=== PATIENT | male | born 1935 | race Caucasian/White ===

== ENCOUNTER 2018-02-01 06:06 | Inpatient (IN) ==
[2018-02-01] MEDS ORDERED: HYDROcodone/APAP 5/325MG TABLET PO ONE (07:03)
--- NOTE | 2018-02-01 07:06 | Emergency Department Note ---
General Adult HPI - General Chief complaint: Rib Pain Stated complaint: Short of Breath Time Seen by Provider: 02/01/18 06:58 Mode of arrival: EMS - History of Present Illness HPI Narrative: This patient broke ribs on the right side ribs 5 through 8 about 2 months ago. He continues to have a lot of pain in the ribs with cough. Does not feel very short of breath. He is coughing up some clear phlegm which sounds chronic. - Related Data Home Medications Medication Instructions Recorded Confirmed rivaroxaban 20 mg tablet 20 mg PO QDAY 10/30/15 02/01/18 Previous Rx's Medication Instructions Recorded ipratropium-albuterol 0.5 mg-3 3 ml INHALATION Q6H PRN #30 vial 03/05/16 mg(2.5 mg base)/3 mL nebulization soln nebulizer See Label Instructions PO .qid prn 03/05/16 #1 omeprazole 20 mg capsule,delayed 20 mg PO QDAY 90 Days #90 cap 12/17/16 release arm sling #1 each 04/09/17 levothyroxine 100 mcg tablet 100 mcg PO QDAY 90 Days #90 tab 04/09/17 lisinopril 10 mg tablet 10 mg PO QDAY #30 tab 04/09/17 fluoxetine 10 mg capsule 10 mg PO QDAY #30 cap 11/17/17 HYDROcodone/APAP 5/325MG [[place] 1 tab PO Q4HP PRN #20 tab 02/01/18 5-325Mg] Allergies Allergy/AdvReac Type Severity Reaction Status Date / Time No Known Drug Allergies Allergy Unknown NONE Verified 01/26/18 10:27 [NKDA] Review of Systems All systems ED: reviewed and negative except as stated. Past Medical History - Past Medical History PMF Narrative: Medical History Tobacco abuse (Chronic) Myocardial infarction, old (Chronic) Hypothyroidism (acquired) (Chronic) Hypertension, essential (Chronic) Hyperlipidemia (Chronic) Hyperbilirubinemia (Chronic) Gross hematuria (Chronic 03/29/12) Gastritis and gastroduodenitis (Chronic) Elevated prostate specific antigen (PSA) (Chronic) Elevated liver enzymes (Chronic) Depression (Chronic) Coronary artery disease (Chronic) Benign prostatic hypertrophy with lower urinary tract symptoms (LUTS) (Chronic) Atrial flutter (Chronic) Atrial fibrillation (Chronic) Anxiety disorder (Chronic) Anemia, iron deficiency (Chronic) Past Surgical History Hx of hernia repair (Chronic) Hx of colonoscopy (Chronic) Cataract (Chronic) Family History Mother Malignant neoplasm of breast Other Malignant neoplasm Medical history: Reports: atrial fibrillation - Social History smoking status: Current every day smoker Alcohol use: Reports: Frequently, Daily, Heavy Drug use: Reports: none Physical Exam Limitations: no limitations General appearance: lethargic Head: atraumatic Eye: Present: normal appearance ENT: normal exam Neck: Present: normal inspection Chest: Present: normal inspection Respiratory: Present: other (Scattered rhonchi in the left side) Cardiovascular: Present: regular rate, normal rhythm, normal heart sounds Abdominal: Present: soft. Absent: distention, tenderness Neurological: Present: alert Psychiatric: Present: normal affect, normal mood Skin: Present: warm, dry, intact Course Vital Signs Temperature 97.4 F 02/01/18 06:07 Pulse Rate 61 02/01/18 06:07 Respiratory Rate 24 H 02/01/18 06:07 Blood Pressure 133/82 02/01/18 06:07 Pulse Oximetry (%) 95 02/01/18 06:07 Temperature 97.4 F 02/01/18 06:07 Pulse Rate 43 L 02/01/18 07:16 Respiratory Rate 24 H 02/01/18 06:07 Blood Pressure 129/82 02/01/18 07:16 Pulse Oximetry (%) 99 02/01/18 07:16 Medical Decision Making - [facility] Narrative Medical decision making narrative: Chest x-ray is unchanged lab work is unremarkable. We will treat him with hydrocodone for his continuing rib pain. - Lab Data Lab results reviewed: Yes I reviewed the patient's lab results. Result diagrams: 02/01/18 06:29 02/01/18 06:29 Lab Results 02/01/18 02/01/18 Range/Units 06:29 06:29 WBC 7.5 (4.5-11.0) K/mcL RBC 3.46 L (4.50-5.90) M/mcL Hgb 12.7 L (13.5-16.5) g/dL Hct 36.9 L (41.0-55.0) % MCV 106.7 H (80.0-100.0) fL MCH 36.6 H (26.0-34.0) pg MCHC 34.3 (31.0-36.0) g/dL RDW 15.7 H (11.5-14.5) % Plt Count 239 (140-440) K/mcL MPV 8.5 (7.4-10.4) fL Gran % 67.3 (38.0-78.0) % Lymph % (Auto) 21.4 (15.5-49.0) % [place] % (Auto) 6.3 (1.0-12.0) % Eos % (Auto) 4.4 (0.0-7.0) % Baso % (Auto) 0.6 (0.0-2.0) % Gran # 5.0 (1.8-8.0) K/mcL Lymph # (Auto) 1.6 (1.5-4.8) K/mcL [place] # (Auto) 0.5 (0.1-0.9) K/mcL Eos # (Auto) 0.3 (0.0-0.7) K/mcL Baso # (Auto) 0 (0.0-0.3) K/mcL Sodium 137 (133-145) mmol/L Potassium 4.0 (3.3-5.1) mmol/L Chloride 102 (96-108) mmol/L Carbon Dioxide 26 (22-30) mmol/L Anion Gap 9.0 (8-16) BUN 13 (8-23) mg/dl Creatinine 0.9 (0.7-1.2) mg/dl GFR Calculation 78 Glucose 87 (70-105) mg/dL Calcium 8.1 L (8.6-10.4) mg/dl Total Bilirubin 1.6 H (0.0-1.0) mg/dL AST 28 (0-37) U/l ALT 13 (0-40) U/l Alkaline Phosphatase 139 H (39-117) U/L Total Protein 6.0 (5.9-8.4) gm/dL Albumin 2.9 L (3.2-5.2) gm/dL Globulin 3.1 (2.2-3.7) gm/dL Albumin/Globulin Ratio 0.9 L (1.0-2.3) - Radiology Data Radiology results reviewed: Yes I reviewed the patient's radiology results. Disposition Pt seen by BUSINESS IMPROVEMENT MANAGER/PA only: No Clinical Impression: Multiple rib fractures Disposition: Home, Self-Care Condition: Good Instructions: Rib Fracture (ED) Prescriptions: HYDROcodone/APAP 5/325MG [[place] 5-325Mg] 1 tab PO Q4HP PRN #20 tab PRN Reason: Pain Referrals: Geoffrey Arambula PA-C [Primary Care Provider] - Time of Disposition: 07:42
[2018-02-01 07:08] LABS: Basophils # (Auto) 0 K/mcL (0.0-0.3); Basophils % (Auto) 0.6 % (0.0-2.0); Eosinophils # (Auto) 0.3 K/mcL (0.0-0.7); Eosinophils % (Auto) 4.4 % (0.0-7.0); Granulocytes % (Auto) 67.3 % (38.0-78.0); Lymphocytes # (Auto) 1.6 K/mcL (1.5-4.8); Lymphocytes % (Auto) 21.4 % (15.5-49.0); Mean Cell Volume 106.7 fL (80.0-100.0); Mean Corpuscular HGB Conc 34.3 g/dL (31.0-36.0); Mean Corpuscular Hemoglobin 36.6 pg (26.0-34.0); Monocytes # (Auto) 0.5 K/mcL (0.1-0.9); Monocytes % (Auto) 6.3 % (1.0-12.0); Platelet Count 239 K/mcL (140-440); RBC 3.46 M/mcL (4.50-5.90); Red Cell Distribution Width 15.7 % (11.5-14.5)
[2018-02-01 07:35] LABS: ALT/SGPT 13 U/l (0-40); Albumin 2.9 gm/dL (3.2-5.2); Albumin/Globulin Ratio 0.9 (1.0-2.3); Alkaline Phosphatase 139 U/L (39-117); Blood Urea Nitrogen 13 mg/dl (8-23)
--- NOTE | 2018-02-01 09:31 | XRay Report ---
CLINICAL INFORMATION: Shortness of breath COMPARISON: 01/26/2018 FINDINGS: Moderate cardiomegaly is unchanged. Mediastinum is unremarkable. Pulmonary vasculature is within normal limits. Marked chronic elevation left diaphragm resulting in subsegmental atelectasis in the overlying left lower lobe and lingula is unchanged. Suspect tiny bilateral pleural effusions IMPRESSION: Marked chronic elevation left diaphragm with minor atelectasis in the lingula and left lower lobe Minor right lower and middle lobe lobe atelectasis. Tiny bilateral pleural effusions Interpreted and Authenticated by: Luis Alfredo Baron 02/01/18
[2018-02-01 10:33] LABS: Appearance,Urine CLEAR; Bilirubin,Urine NEG (NEG); Color,Urine AMBER; Glucose,Urine (UA) NEGATIVE (NEG); Leukocyte Esterase,Urine NEG /uL (NEG); Protein,Urine NEG (NEG); Specific Gravity,Urine 1.028 (1.000-1.035); Urine Blood NEG mg/dL (<0.03)
--- NOTE | 2018-02-01 10:55 | Emergency Department Note ---
Weakness HPI - General Chief complaint: Rib Pain Stated complaint: Short of Breath Time Seen by Provider: 02/01/18 06:58 Mode of arrival: EMS Limitations: no limitations - History of Present Illness HPI Narrative: Patient seen by Dr. pineda before change of shift. On my review with patient there were additional pieces of information that family brought forward that included his weakness and dehydration and falling and that he is now ready for assistance. He lives at home with his . His is in a wheelchair. He has had multiple falls himself that have been the cause of his rib fractures from 3 months ago and then again recently about 8 days ago. His urine was reportedly also very dark. He has been confused for a couple of months. He has been short of breath for a couple of months. He has a history of COPD and CHF hypertension, [place] and hypothyroidism. He has not been taking his thyroid medication. Previously he has not been on to have a low heart rate. On my review his heart rate is 46 sometimes dipping even slightly below 40. He is not real symptomatic except general malaise and fatigue appearance. Family confirms that patient has some depression and does not really want to be alive. He has been poorly motivated. For this reason he has not been taking his thyroid medication. He is a DNR. MD Complaint: generalized weakness, lack of energy, difficulty walking Associated symptoms: Reports: shortness of breath. Denies: chest pain - Related Data Home Medications Medication Instructions Recorded Confirmed rivaroxaban 20 mg tablet 20 mg PO QDAY 10/30/15 02/01/18 Previous Rx's Medication Instructions Recorded ipratropium-albuterol 0.5 mg-3 3 ml INHALATION Q6H PRN #30 vial 03/05/16 mg(2.5 mg base)/3 mL nebulization soln nebulizer See Label Instructions PO .qid prn 03/05/16 #1 omeprazole 20 mg capsule,delayed 20 mg PO QDAY 90 Days #90 cap 12/17/16 release arm sling #1 each 04/09/17 levothyroxine 100 mcg tablet 100 mcg PO QDAY 90 Days #90 tab 04/09/17 lisinopril 10 mg tablet 10 mg PO QDAY #30 tab 04/09/17 fluoxetine 10 mg capsule 10 mg PO QDAY #30 cap 11/17/17 HYDROcodone/APAP 5/325MG [[place] 1 tab PO Q4HP PRN #20 tab 02/01/18 5-325Mg] Allergies Allergy/AdvReac Type Severity Reaction Status Date / Time No Known Drug Allergies Allergy Unknown NONE Verified 01/26/18 10:27 [NKDA] Past Medical History - Past Medical History Medical history: Reports: atrial fibrillation, CHF, COPD, hypertension, hypothyroidism, myocardial infarction. Denies: cancer, CVA, DM Psychiatric history: Reports: depression (Recent with lots of friends as well as circumstances.). Denies: anxiety - Social History smoking status: Current every day smoker Packs per day: 0.5 Alcohol use: Reports: Frequently, Daily (He reports maybe 1 whiskey drink per day), Heavy Drug use: Reports: none. Denies: marijuana Physical Exam Limitations: no limitations General appearance: lethargic Head: atraumatic, normocephalic Eye: Present: EOMI Respiratory: Absent: respiratory distress Cardiovascular: Present: regular rate, bradycardia Course Vital Signs Temperature 97.4 F 02/01/18 06:07 Pulse Rate 61 02/01/18 06:07 Respiratory Rate 24 H 02/01/18 06:07 Blood Pressure 133/82 02/01/18 06:07 Pulse Oximetry (%) 95 02/01/18 06:07 Temperature 97.4 F 02/01/18 06:07 Pulse Rate 48 L 02/01/18 12:01 Respiratory Rate 17 02/01/18 12:01 Blood Pressure 160/94 02/01/18 12:01 Pulse Oximetry (%) 99 02/01/18 12:01 Weakness - MDM Narrative Medical decision making narrative: With the additional findings patient qualifies for inpatient treatment and we will seek a hospital bed with monitoring. I added a TSH to see if his thyroid is way low and could be the main contributor to his bradycardia. A pacemaker would not be indicated if this were so. He is stable enough to monitor this. He is DNR. His urine did not seem to show blood in it. His bili was mildly elevated and this may be a cause for the darker color of his urine. TSH currently pending. He also demonstrated an anemia with macrocytosis. His calcium was also mildly low. He was running 100% on 2 L so I stopped his oxygen and he seemed to be maintaining well. EKG demonstrated a prolonged QTC of greater than 500. 12:40 PM - TSH took a while to come back had to be run twice. It was 58.68. I discussed case with Dr. Rodriguez who kindly accepted care of this patient via telemetry. - Lab Data Result diagrams: 02/01/18 06:29 02/01/18 06:29 Lab Results 02/01/18 02/01/18 02/01/18 Range/Units 06:29 06:29 06:29 WBC 7.5 (4.5-11.0) K/mcL RBC 3.46 L (4.50-5.90) M/mcL Hgb 12.7 L (13.5-16.5) g/dL Hct 36.9 L (41.0-55.0) % MCV 106.7 H (80.0-100.0) fL MCH 36.6 H (26.0-34.0) pg MCHC 34.3 (31.0-36.0) g/dL RDW 15.7 H (11.5-14.5) % Plt Count 239 (140-440) K/mcL MPV 8.5 (7.4-10.4) fL Gran % 67.3 (38.0-78.0) % Lymph % (Auto) 21.4 (15.5-49.0) % [place] % (Auto) 6.3 (1.0-12.0) % Eos % (Auto) 4.4 (0.0-7.0) % Baso % (Auto) 0.6 (0.0-2.0) % Gran # 5.0 (1.8-8.0) K/mcL Lymph # (Auto) 1.6 (1.5-4.8) K/mcL [place] # (Auto) 0.5 (0.1-0.9) K/mcL Eos # (Auto) 0.3 (0.0-0.7) K/mcL Baso # (Auto) 0 (0.0-0.3) K/mcL Sodium 137 (133-145) mmol/L Potassium 4.0 (3.3-5.1) mmol/L Chloride 102 (96-108) mmol/L Carbon Dioxide 26 (22-30) mmol/L Anion Gap 9.0 (8-16) BUN 13 (8-23) mg/dl Creatinine 0.9 (0.7-1.2) mg/dl GFR Calculation 78 Glucose 87 (70-105) mg/dL Calcium 8.1 L (8.6-10.4) mg/dl Total Bilirubin 1.6 H (0.0-1.0) mg/dL AST 28 (0-37) U/l ALT 13 (0-40) U/l Alkaline Phosphatase 139 H (39-117) U/L Total Protein 6.0 (5.9-8.4) gm/dL Albumin 2.9 L (3.2-5.2) gm/dL Globulin 3.1 (2.2-3.7) gm/dL Albumin/Globulin Ratio 0.9 L (1.0-2.3) TSH 58.68 H (0.27-5.01) uIU/ml Urine Color Urine Appearance Urine pH (5.0-9.0) Ur Specific [place] (1.000-1.035) Urine Protein (NEG) mg/dL Urine Glucose (UA) (NEG) mg/dL Urine Ketones (NEG) mg/dL Urine Occult Blood (<0.03) mg/dL Urine Nitrate (NEG) Urine Bilirubin (NEG) mg/dL Urine Urobilinogen (NEG) mg/dL Ur Leukocyte Esterase (NEG) /uL Ur Culture Indicated? 02/01/18 Range/Units 10:16 WBC (4.5-11.0) K/mcL RBC (4.50-5.90) M/mcL Hgb (13.5-16.5) g/dL Hct (41.0-55.0) % MCV (80.0-100.0) fL MCH (26.0-34.0) pg MCHC (31.0-36.0) g/dL RDW (11.5-14.5) % Plt Count (140-440) K/mcL MPV (7.4-10.4) fL Gran % (38.0-78.0) % Lymph % (Auto) (15.5-49.0) % [place] % (Auto) (1.0-12.0) % Eos % (Auto) (0.0-7.0) % Baso % (Auto) (0.0-2.0) % Gran # (1.8-8.0) K/mcL Lymph # (Auto) (1.5-4.8) K/mcL [place] # (Auto) (0.1-0.9) K/mcL Eos # (Auto) (0.0-0.7) K/mcL Baso # (Auto) (0.0-0.3) K/mcL Sodium (133-145) mmol/L Potassium (3.3-5.1) mmol/L Chloride (96-108) mmol/L Carbon Dioxide (22-30) mmol/L Anion Gap (8-16) BUN (8-23) mg/dl Creatinine (0.7-1.2) mg/dl GFR Calculation Glucose (70-105) mg/dL Calcium (8.6-10.4) mg/dl Total Bilirubin (0.0-1.0) mg/dL AST (0-37) U/l ALT (0-40) U/l Alkaline Phosphatase (39-117) U/L Total Protein (5.9-8.4) gm/dL Albumin (3.2-5.2) gm/dL Globulin (2.2-3.7) gm/dL Albumin/Globulin Ratio (1.0-2.3) TSH (0.27-5.01) uIU/ml Urine Color [place] Urine Appearance Clear Urine pH 5.0 (5.0-9.0) Ur Specific [place] 1.028 (1.000-1.035) Urine Protein Neg (NEG) mg/dL Urine Glucose (UA) Negative (NEG) mg/dL Urine Ketones Neg (NEG) mg/dL Urine Occult Blood Neg (<0.03) mg/dL Urine Nitrate Neg (NEG) Urine Bilirubin Neg (NEG) mg/dL Urine Urobilinogen 4.0 A (NEG) mg/dL Ur Leukocyte Esterase Neg (NEG) /uL Ur Culture Indicated? No Disposition Pt seen by FINANCIAL MARKET DEALER/PA only: No Clinical Impression: Sinus bradycardia, Weakness, Dehydration, mild, Prolonged Q-T interval on ECG, Multiple falls, Macrocytosis, Hyperbilirubinemia, Hypocalcemia, Hypertension, essential Multiple rib fractures Qualifiers: Encounter type: subsequent encounter Fracture type: closed Laterality: unspecified laterality Fracture healing: with routine healing Qualified Code(s) : S22.49XD - Multiple fractures of ribs, unspecified side, subsequent encounter for fracture with routine healing Skin tear of right upper arm without complication Qualifiers: Encounter type: subsequent encounter Qualified Code(s): S41.111D - Laceration without foreign body of right upper arm, subsequent encounter Anemia Qualifiers: Anemia type: unspecified type Qualified Code(s): D64.9 - Anemia, unspecified Depression Qualifiers: Depression Type: reactive depression Qualified Code(s): F32.9 - Major depressive disorder, single episode, unspecified Summary: See Dr. pineda's H&P. Original intent was to send patient home. With additional information he qualifies for inpatient and this is the desire of patient and family. See Medical Decision Making. Disposition: Xfer As Inpt ([facility]) Condition: Fair Prescriptions: HYDROcodone/APAP 5/325MG [[place] 5-325Mg] 1 tab PO Q4HP PRN #20 tab PRN Reason: Pain Referrals: Geoffrey Arambula PA-C [Primary Care Provider] -
--- NOTE | 2018-02-01 14:05 | Internal Med History&Physical ---
Medical - H&P: HPI Patient information: Note initiated : 02/01/18 at 2:00 pm Service Date, if different from initiated Date: [] Patient: River Ta 82 y/o M admitted on for Short of Breath. Chief Complaint: [] History of present illness: Mr. Ta is a 82 year old M with history of chronic obstructive pulmonary disease, chronic atrial fibrillation hypothyroidism depression who presents to the hospital accompanied by his daughter for evaluation of weakness shortness of breath. According to the patient and his family he has not been doing well for the last several months. He had multiple falls over the last few months last was approximately 6 days ago. He was seen in the emergency room here and had a right-sided fractures fifth through eighth acute. He signed himself out AMA according to the ER physician note. He had a blood culture drawn which was positive for gram-positive cocci coag negative staph. Which was not treated. The patient this time around comes with weakness and shortness of breath that has been getting worse since then. The patient also has poor oral intake. The patient is a very poor historian and does not want to talk much. He admits that he has not taken his chronic medications for a while unable to give me a good timeframe. It seems that the patient does not have very much desire to live anymore because of severe depression he admits to being depressed his and since then it seems like he has not much desire to continue on. The patient also drinks heavily according to the laxity noted. In the emergency room the patient had normal temperature, he was saturating 85% on room air which improved to more than 90% with 2 L of oxygen, blood pressure was stable. He was in atrial fibrillation with a very labile heart rate. The heart rate varied from upper 30s-80 depending upon his activity level. The patient did not have any dizziness headache chest pain or palpitations. The chest x-ray showed left elevated hemidiaphragm which is chronic, had left- sided atelectasis, also had right lower lobe and middle lobe atelectasis. The labs showed WBC of 7.5, hemoglobin 12.7 hematocrit 36, platelets 239, MCV 106 [history of alcohol use], patient's left lites were stable. He had elevated bilirubin at 1.6. The patient had very high TSH at 58. He has not been taking his Synthroid. EKG showed atrial fibrillation with bradycardia, it also showed low voltage. In the limb leads. The patient had abrasions in both his upper extremities. He was very weak and unable to ambulate or take care of himself. He was therefore admitted to the hospital for further management. The patient has a DNR - Constitutional Constitutional: Present: fatigue, frequent falls, weakness. Absent: fever(s), headache(s) - EENT Eyes: Absent: photophobia, seeing flashes, other visual disturbances Ears: Absent: decreased hearing Nose, mouth and throat: Absent: headache(s), vertigo - Cardiovascular Cardiovascular: Absent: chest pain, palpatations, paroxysmal nocturnal dyspnea, syncope - Respiratory Respiratory: Present: dyspnea, dyspnea on exertion, pain on inspirtation. Absent: wheezing, excessive phlegm production, change in phlegm color - Gastrointestinal Gastrointestinal: Absent: constipation, diarrhea, nausea, vomiting - Genitourinary Genitourinary: Present: hematuria (dark urine noted. ). Absent: urinary hesitancy, urinary incontinence, urinary urgency - Musculoskeletal Musculoskeletal: Present: myalgias - Integumentary Integumentary: Present: bleeding lesions, wounds (both upper extremities) - Neurological Neurological: Present: frequent falls, weakness. Absent: focal weakness, headache(s), syncope, vertigo, other visual disturbances - Endocrine Endocrine: Absent: polydipsia, polyphagia, polyuria - Hematologic/Lymphatic Hematologic/Lymphatic: Present: easy bleeding, easy bruising - Allergic/Immunologic Allergic/Immunologic: Absent: uticaria, wheezing, lip swelling Medical - H&P: PMH Medical history: Medical History Tobacco abuse (Chronic) Myocardial infarction, old (Chronic) Hypothyroidism (acquired) (Chronic) Hypertension, essential (Chronic) Hyperlipidemia (Chronic) Hyperbilirubinemia (Chronic) Gross hematuria (Chronic 03/29/12) Gastritis and gastroduodenitis (Chronic) Elevated prostate specific antigen (PSA) (Chronic) Elevated liver enzymes (Chronic) Depression (Chronic) Coronary artery disease (Chronic) Benign prostatic hypertrophy with lower urinary tract symptoms (LUTS) (Chronic) Atrial flutter (Chronic) Atrial fibrillation (Chronic) Anxiety disorder (Chronic) Anemia, iron deficiency (Chronic) Surgical history: Past Surgical History Hx of hernia repair (Chronic) Hx of colonoscopy (Chronic) Cataract (Chronic) Pertinent family history: Family History Mother Malignant neoplasm of breast Other Malignant neoplasm Medical - H&P: Meds Home Medications Medication Instructions Recorded Confirmed Type rivaroxaban 20 mg tablet 20 mg PO QDAY 10/30/15 02/01/18 History ipratropium-albuterol 0.5 mg-3 3 ml INHALATION Q6H PRN #30 vial 03/05/16 Rx mg(2.5 mg base)/3 mL nebulization soln nebulizer See Label Instructions PO .qid prn 03/05/16 02/01/18 Rx #1 omeprazole 20 mg capsule,delayed 20 mg PO QDAY 90 Days #90 cap 12/17/16 Rx release arm sling #1 each 04/09/17 11/17/17 Rx levothyroxine 100 mcg tablet 100 mcg PO QDAY 90 Days #90 tab 04/09/17 02/01/18 Rx lisinopril 10 mg tablet 10 mg PO QDAY #30 tab 04/09/17 02/01/18 Rx fluoxetine 10 mg capsule 10 mg PO QDAY #30 cap 11/17/17 02/01/18 Rx HYDROcodone/APAP 5/325MG [[place] 1 tab PO Q4HP PRN #20 tab 02/01/18 Rx 5-325Mg] Allergies Allergy/AdvReac Type Severity Reaction Status Date / Time No Known Drug Allergies Allergy Unknown NONE Verified 01/26/18 10:27 [NKDA] Medical - H&P: Exam - Constitutional Vitals: Temp Pulse Resp BP Pulse Ox 97.4 F 53 L 24 H 141/78 96 02/01/18 06:07 02/01/18 13:31 02/01/18 13:31 02/01/18 13:31 02/01/18 13:31 Exam: GENERAL: The patient is a well-developed, well-nourished in no apparent distress. Is alert and oriented x3. VITAL SIGNS: Reviewed and as noted elsewhere. HEENT: Head is normocephalic and atraumatic. Extraocular muscles are intact. Pupils are equal, round, and reactive to light. Nares appeared normal. Mouth appears any without lesions. Mucous membranes are dry NECK: Normal to inspection, Supple, No lymphadenopathy or thyromegaly. Chest wall-patient has tenderness on the right side of the chest wall on palpation. LUNGS: Air entry equal on both sides, no wheezing, crackles or rhonchi noted. No accessory muscles of respiration HEART: Bradycardic rate, irregular rhythm S1 and S2 heard, no Gallop, S3 or Rub Noted, No Gross murmur heard. ABDOMEN: Soft, nontender, and nondistended. Positive bowel sounds. No hepatosplenomegaly was noted. EXTREMITIES: No cyanosis, clubbing, rash, lesions or edema. NEUROLOGIC: Cranial nerves II through XII are grossly intact. Motor and Sensory System Grossly Intact PSYCHIATRIC: Normal affect, Normal Mood. Appropriate Behavior. SKIN: No ulceration, No jaundice, No rash noted. Multiple abrasions on both upper extremities noted. Extensive bruising on both upper extremities Medical - H&P: Reslt - Labs CBC & Chem 7: 02/01/18 06:29 02/01/18 06:29 Labs: Short CBC 02/01/18 Range/Units 06:29 WBC 7.5 (4.5-11.0) K/mcL Hgb 12.7 L (13.5-16.5) g/dL Hct 36.9 L (41.0-55.0) % Plt Count 239 (140-440) K/mcL BMP 02/01/18 06:29 Sodium 137 Potassium 4.0 Chloride 102 Carbon Dioxide 26 BUN 13 Creatinine 0.9 Glucose 87 Calcium 8.1 L Liver Function 02/01/18 Range/Units 06:29 Total Bilirubin 1.6 H (0.0-1.0) mg/dL AST 28 (0-37) U/l ALT 13 (0-40) U/l Alkaline Phosphatase 139 H (39-117) U/L Albumin 2.9 L (3.2-5.2) gm/dL Urine 02/01/18 Range/Units 10:16 Urine Color Tamika Urine Appearance Clear Urine pH 5.0 (5.0-9.0) Ur Specific [place] 1.028 (1.000-1.035) Urine Protein Neg (NEG) mg/dL Urine Glucose (UA) Negative (NEG) mg/dL Medical - H&P: A/P - Narrative A/P Narrative: A/P Rib Fractures: Due to mechanical fall, history of heavy alcohol use. Chest x- ray shows atelectasis in the right lower lobe and middle lobe. Aggressive pulmonary toilet pain management for now. Hypoxia-patient was saturating 85% on room air, given 2 L of oxygen secondary to pulmonary atelectasis likely. Aggressive pulmonary toilet. Check pro- calcitonin to rule out any occult infection Hematuria/ [place] Urine-dark urine since the time of fall, UA reviewed. Patient also has elevated bilirubin at 1.6. Will check CT abdomen and pelvis to make sure there is no traumatic injury. Especially given history of fall and refracture. IV fluids for now. Monitor urine, give IV fluids. Check CK levels Alcohol Abuse-heavy alcohol user, multiple falls likely secondary to alcohol use , see operative call for now, IV thiamine multivitamin and folic acid. Banana bag ordered for now COPD-duo nebs every 6 hours, patient does not have any wheezing on exam today. Hypothyroidism-patient has history of hypothyroidism, has not been compliant with his medication. His TSH was normal it seems in the recent past I am assuming when he was compliant with his medication. Give IV levothyroxine at 50 MCG for now given severe weakness. Check TSH T3-T4. Resume oral levothyroxine once TSH starts to improve Bradycardia-likely due to atrial fibrillation as well as hypothyroidism. Correct thyroid function. The heart rate does improve when the patient tries to move around. Patient has no history of presyncope or palpitations. If the patient's heart rate remains low despite correcting the thyroid function the patient may need a pacemaker. Atrial Fibrillation-not on any rate control medications, on liver accident for anticoagulation continue same. Bactermia-noted on 26 January, coag negative staph, resistant to penicillin, IV vancomycin for now. Repeat blood cultures. Check pro-calcitonin it is likely that this is a contaminant but will wait negative repeat blood cultures Depression-contributory factors are family issues, perhaps alcohol is playing a role. Resume home antidepressant medication. OT/PT/ST therapy,-aggressive therapy will be instituted DNR code status Regular diet on chr anticoagulation Social History - Social History marital status: occupational status: retired - Tobacco smoking status: Current every day smoker - Tobacco Type tobacco type: cigarettes - Cigarette Details per day: 10 - Alcohol alcohol intake frequency: 2+ drinks per day - Substance use substance use type: does not use
[2018-02-01] MEDS ORDERED: VANCOMYCIN PER PHARMACY IV SCH (14:35)
[2018-02-01] MEDS ORDERED: POTASSIUM CHLORIDE 20 MEQ, MAGNESIUM SULFATE 16.24 MEQ, THIAMINE 100 MG, MVI, ADULT NO.... IV SCH (14:35)
[2018-02-01] MEDS ORDERED: LORazepam 2 MG/ML VIAL IV PRN (14:35)
[2018-02-01] MEDS ORDERED: NALOXONE HCL 0.4 MG/ML VIAL IV PRN (14:35)
[2018-02-01] MEDS ORDERED: RIVAROXABAN 20 MG TABLET PO SCH (14:35)
[2018-02-01] MEDS ORDERED: ACETAMINOPHEN 325 MG TABLET PO PRN (14:35)
[2018-02-01] MEDS ORDERED: ONDANSETRON 4 MG/2 ML VIAL IV PRN (14:35)
[2018-02-01] MEDS ORDERED: LACTATED RINGERS 1,000 ML IV ONE (14:47)
[2018-02-01] MEDS: IPRATROPIUM/ALBUTEROL 3 ML AMPUL.NEB NEB SCH ×2 (14:56→19:10)
[2018-02-01] MEDS: 0.9 % SODIUM CHLORIDE 10 ML SYRINGE IV SCH ×4 (15:08→21:33)
[2018-02-01] MEDS: LEVOTHYROXINE 100 MCG VIAL IV SCH (15:08)
[2018-02-01] MEDS: VANCOMYCIN 1,500 MG in 0.9 % SODIUM CHLORIDE 500 ML IV SCH (15:10)
[2018-02-01 16:26] LABS: Creatine Kinase 95 IU/L (24-195); T4 (Thyroxine) < 0.5 ug/dl (5.0-12.0)
[2018-02-01] MEDS ORDERED: IOPAMIDOL 100 ML BOTTLE IV ONE (17:30)
[2018-02-01] MEDS: RIVAROXABAN 20 MG TABLET PO SCH (17:41)
--- NOTE | 2018-02-01 18:04 | Cat Scan Report ---
CLINICAL INFORMATION: Trauma COMPARISON: Chest x-ray from 10/17/2014. TECHNIQUE: Following enteric contrast, 80 cc of Isovue-300 were injected intravenously, and 60 seconds later, 0.625 mm helical slices were obtained from the mid heart through the subtrochanteric regions. Following reconstruction, 2.5 mm sagittal, coronal and axial reformatted images were processed and reviewed at bone, lung and soft tissue windows. Five minutes later, 0.625 mm helical slices were obtained from the mid heart through the kidneys and viewed at soft tissue windows.The exam was performed using radiation dose optimization techniques including, but not limited to, automated exposure control, adjustment of the mA and/or kV according to patient size and use of iterative reconstruction technique. FINDINGS: Marked chronic elevation left diaphragm demonstrates long-term stability. Small right pleural effusion is noted. Patchy groundglass infiltrate in the visualized lower lobes and lingula, more prominent on the left side, may represent aspiration pneumonia. The heart is moderately enlarged Images through the abdomen show an 8.8 cm well-circumscribed mass arising from the posterior segment of the right hepatic lobe. It has central low attenuation region and scattered peripheral calcification. It exhibits peripheral enhancement with some centripetal fill-in on five minute delayed images.. It is likely a benign hemangioma. There are multiple, predominantly cholesterol, stones within the nondependent gallbladder. Common bile duct is normal caliber: 5 mm. The remainder of the liver, both kidneys, adrenal glands, spleen, pancreas and aorta, including aortic branches, are normal in size configuration and attenuation without focal lesion. Images through the pelvis show moderate prostate enlargement - 6.7 x 6 cm. There is mild diffuse thickening of the urinary bladder wall thickening suggestive of chronic bladder outlet narrowing. There multiple small bladder stones in the left base - all less than 8 mm. Multiple sigmoid diverticuli noted, but no evidence of diverticulitis. The remainder of the colon appendix small bowel and stomach are normal. Bone windows show acute minimally displaced fractures of the right seventh, eighth and ninth ribs. IMPRESSION: 1. Acute nondisplaced fractures of the lateral right seventh and eighth and ninth ribs. No other acute posttraumatic change. 2. Cholelithiasis. Gallbladder and bile ducts are otherwise normal 3. Marked chronic elevation of the left diaphragm - stable. There is patchy airspace disease in both lower lobes and lingula which could indicate aspiration pneumonia. Moderate right pleural effusion noted 4. 8.9 cm benign-appearing lesion in the posterior segment of the right hepatic lobe - almost certainly benign hemangioma or benign FNH. Suggest: six month limited liver ultrasound to ensure stability. 5. Moderate prostate enlargement with diffuse urinary bladder wall thickening suggesting chronic bladder outlet narrowing. There or multiple small bladder stones in the left base, all less than 8 mm, likely a result of urinary stasis. Interpreted and Authenticated by: Luis Alfredo Baron 02/01/18
--- NOTE | 2018-02-01 18:41 | General Surgery Consult Note ---
History of Present Illness Patient information: Note initiated : 02/01/18 at 6:39 pm Service Date, if different from initiated Date: [] Patient: Daily,River guardado 82 y/o M admitted on 02/01/18 for Short of Breath. Chief Complaint: [] Consult date: 02/01/18 Requesting physician: Seth Rodriguez (Wound care consult.) History of present illness: I examined this patient briefly earlier this evening as he was being evaluated initially in room 119 by nursing staff. patient's daughter was present in room. SAW patient again this evening with Ofelia MACARIO. Reviewed EHR notes form ER and Hospitalist physician and examined all wounds Medications and Allergies Home Medications Medication Instructions Recorded Confirmed Type No Known Home Meds [No Known Home 02/01/18 02/01/18 History Meds] Allergies Allergy/AdvReac Type Severity Reaction Status Date / Time No Known Drug Allergies Allergy Unknown NONE Verified 02/01/18 14:16 [NKDA] Exam Temp Pulse Resp BP Pulse Ox 97.4 F 58 L 16 138/87 93 02/01/18 14:35 02/01/18 15:05 02/01/18 15:05 02/01/18 14:35 02/01/18 15:14 - General physical appearance well developed, well nourished, no distress - Eyes PERRL, normal ocular movement - ENT normal pinna, normal nares, normal mucosa, no congestion - Head Head exam IM: Present: atraumatic, normal inspection, normocephalic - Neck no masses, no bruits, trachea midline, no venous distension - Cardiovascular Cardiovascular exam IM: Present: irregular rhythm - Respiratory normal expansion, normal respiratory effort, other (Non productive smoker cough.Some mucoid phlegm. ) - Abdomen Abdomen: Present: soft, non tender, bowel sounds - Genitourinary Present: normal penis with no external lesions, testicles present - Integumentary Present: other (old skin tears rade 1 -2 RIght and left forearms and arousn elbow areas 2 -3 CM Max) - Neurologic Present: normal coordination, normal sensation, other (Moves well in bed. No lateralizing signs. ) - Musculoskeletal Present: normal posture, other (No gross musculo skeletal abnormalities. ) - Psychiatric Present: speech is normal, other (Coopeartive and obeys commands. ) Results - Labs 02/02/18 03:40 02/02/18 03:40 Abnormal lab results 02/01/18 02/01/18 02/01/18 Range/Units 06:29 06:29 06:29 RBC 3.46 L (4.50-5.90) M/mcL Hgb 12.7 L (13.5-16.5) g/dL Hct 36.9 L (41.0-55.0) % MCV 106.7 H (80.0-100.0) fL MCH 36.6 H (26.0-34.0) pg RDW 15.7 H (11.5-14.5) % Calcium 8.1 L (8.6-10.4) mg/dl Total Bilirubin 1.6 H (0.0-1.0) mg/dL Alkaline Phosphatase 139 H (39-117) U/L Albumin 2.9 L (3.2-5.2) gm/dL Albumin/Globulin Ratio 0.9 L (1.0-2.3) TSH 58.68 H (0.27-5.01) uIU/ml Thyroxine (T4) (5.0-12.0) ug/dl Free T3 pg/mL (2.0-4.4) pg/ml Urine Urobilinogen (NEG) mg/dL 02/01/18 02/01/18 Range/Units 10:16 15:11 RBC (4.50-5.90) M/mcL Hgb (13.5-16.5) g/dL Hct (41.0-55.0) % MCV (80.0-100.0) fL MCH (26.0-34.0) pg RDW (11.5-14.5) % Calcium (8.6-10.4) mg/dl Total Bilirubin (0.0-1.0) mg/dL Alkaline Phosphatase (39-117) U/L Albumin (3.2-5.2) gm/dL Albumin/Globulin Ratio (1.0-2.3) TSH (0.27-5.01) uIU/ml Thyroxine (T4) < 0.5 L (5.0-12.0) ug/dl Free T3 pg/mL 0.4 L (2.0-4.4) pg/ml Urine Urobilinogen 4.0 A (NEG) mg/dL Diabetes panel 02/01/18 Range/Units 06:29 Sodium 137 (133-145) mmol/L Potassium 4.0 (3.3-5.1) mmol/L Chloride 102 (96-108) mmol/L Carbon Dioxide 26 (22-30) mmol/L BUN 13 (8-23) mg/dl Creatinine 0.9 (0.7-1.2) mg/dl Glucose 87 (70-105) mg/dL Calcium 8.1 L (8.6-10.4) mg/dl AST 28 (0-37) U/l ALT 13 (0-40) U/l Alkaline Phosphatase 139 H (39-117) U/L Total Protein 6.0 (5.9-8.4) gm/dL Albumin 2.9 L (3.2-5.2) gm/dL Thyroid panel 02/01/18 02/01/18 Range/Units 06:29 15:11 TSH 58.68 H (0.27-5.01) uIU/ml Thyroxine (T4) < 0.5 L (5.0-12.0) ug/dl Calcium panel 02/01/18 Range/Units 06:29 Calcium 8.1 L (8.6-10.4) mg/dl Albumin 2.9 L (3.2-5.2) gm/dL Pituitary panel 02/01/18 02/01/18 02/01/18 Range/Units 06:29 06:29 15:11 Sodium 137 (133-145) mmol/L Potassium 4.0 (3.3-5.1) mmol/L Chloride 102 (96-108) mmol/L Carbon Dioxide 26 (22-30) mmol/L BUN 13 (8-23) mg/dl Creatinine 0.9 (0.7-1.2) mg/dl Glucose 87 (70-105) mg/dL Calcium 8.1 L (8.6-10.4) mg/dl TSH 58.68 H (0.27-5.01) uIU/ml Thyroxine (T4) < 0.5 L (5.0-12.0) ug/dl Adrenal panel 02/01/18 Range/Units 06:29 Sodium 137 (133-145) mmol/L Potassium 4.0 (3.3-5.1) mmol/L Chloride 102 (96-108) mmol/L Carbon Dioxide 26 (22-30) mmol/L BUN 13 (8-23) mg/dl Creatinine 0.9 (0.7-1.2) mg/dl Glucose 87 (70-105) mg/dL Calcium 8.1 L (8.6-10.4) mg/dl Total Bilirubin 1.6 H (0.0-1.0) mg/dL AST 28 (0-37) U/l ALT 13 (0-40) U/l Alkaline Phosphatase 139 H (39-117) U/L Total Protein 6.0 (5.9-8.4) gm/dL Albumin 2.9 L (3.2-5.2) gm/dL All other labs normal. Assessment and Plan (1) Multiple skin tears Assessment: Multiple Medical Problems: Old rib fractures, PNA , BPH Able to void urine, COPD, Hypothyroid, Depression, ETOH / Smoker, Chronic A Fib H/O recurrent ground level falls. Skin tears grade 1 and 2 both forearms and elbow regions. Plan: Clean skin with Chlorhexidine, Pat dry with wash cloth. Cover skin teras with Mepilx border foam dressings and change 2 x week. I will follow patient in hospital intermittently. If discharged f/u at wound clinic in ONE week. Status: Acute Priority: Medium Comment: Clean with Chlorhexidene and Pat dry with wash cloth. Cover with Mepilex border foam and change TWO times a week.
[2018-02-01] MEDS: oxyCODONE/APAP 5/325MG TABLET PO PRN (18:55)
[2018-02-02] MEDS: VANCOMYCIN 1,500 MG in 0.9 % SODIUM CHLORIDE 500 ML IV SCH ×3 (00:32→21:06)
[2018-02-02] MEDS: IPRATROPIUM/ALBUTEROL 3 ML AMPUL.NEB NEB SCH ×4 (00:32→19:06)
[2018-02-02 04:43] LABS: Basophils # (Auto) 0 K/mcL (0.0-0.3); Basophils % (Auto) 0.2 % (0.0-2.0); Eosinophils # (Auto) 0.3 K/mcL (0.0-0.7); Eosinophils % (Auto) 4.2 % (0.0-7.0); Granulocytes % (Auto) 74.8 % (38.0-78.0); Lymphocytes # (Auto) 1.3 K/mcL (1.5-4.8); Lymphocytes % (Auto) 15.9 % (15.5-49.0); Mean Cell Volume 107.7 fL (80.0-100.0); Mean Corpuscular HGB Conc 33.2 g/dL (31.0-36.0); Mean Corpuscular Hemoglobin 35.8 pg (26.0-34.0); Monocytes # (Auto) 0.4 K/mcL (0.1-0.9); Monocytes % (Auto) 4.9 % (1.0-12.0); Platelet Count 194 K/mcL (140-440); RBC 3.27 M/mcL (4.50-5.90); Red Cell Distribution Width 16.4 % (11.5-14.5)
[2018-02-02 05:00] LABS: ALT/SGPT 12 U/l (0-40); Albumin 2.7 gm/dL (3.2-5.2); Alkaline Phosphatase 128 U/L (39-117); Bilirubin,Direct 0.4 mg/dL (0.0-0.3); Blood Urea Nitrogen 11 mg/dl (8-23); Gamma Glutamyl Transpeptidase 66 U/L (8-61); Uric Acid 5.2 mg/dL (2.5-8.0)
[2018-02-02] MEDS: 0.9 % SODIUM CHLORIDE 10 ML SYRINGE IV SCH ×6 (05:31→22:00)
[2018-02-02] MEDS: oxyCODONE/APAP 5/325MG TABLET PO PRN (05:44)
[2018-02-02] MEDS: LEVOTHYROXINE 100 MCG VIAL IV SCH (06:52)
[2018-02-02] MEDS: OMEPRAZOLE 20 MG CAPSULE PO SCH (06:53)
[2018-02-02] MEDS: MULTIVIT,THER IRON,CA,FA & MIN 1 TABLET PO SCH (08:17)
[2018-02-02] MEDS: LISINOPRIL 10 MG TABLET PO SCH (08:17)
[2018-02-02] MEDS: FOLIC ACID 1 MG TABLET PO SCH (08:17)
[2018-02-02] MEDS: FLUoxetine HCL 10 MG CAPSULE PO SCH (08:17)
[2018-02-02] MEDS ORDERED: THIAMINE 100 MG in 0.9 % SODIUM CHLORIDE 50 ML IV SCH (09:00)
--- NOTE | 2018-02-02 10:15 | Internal Med Progress Note ---
Medical - PN: Subj Patient information: Note initiated : 02/02/18 at 10:13 am Service Date, if different from initiated Date: [] Patient: River Ta 82 y/o M admitted on 02/01/18 for Short of Breath/ Multiple Rib Fractures, Hypoxia. Chief Complaint: [] Interval history: Mr. Ta is a 82 year old M with history of chronic obstructive pulmonary disease, chronic atrial fibrillation hypothyroidism depression who presents to the hospital accompanied by his daughter for evaluation of weakness shortness of breath. According to the patient and his family he has not been doing well for the last several months. He had multiple falls over the last few months last was approximately 6 days ago. He was seen in the emergency room here and had a right-sided fractures fifth through eighth acute. He signed himself out AMA according to the ER physician note. He had a blood culture drawn which was positive for gram-positive cocci coag negative staph. Which was not treated. The patient this time around comes with weakness and shortness of breath that has been getting worse since then. The patient also has poor oral intake. The patient is a very poor historian and does not want to talk much. He admits that he has not taken his chronic medications for a while unable to give me a good timeframe. It seems that the patient does not have very much desire to live anymore because of severe depression he admits to being depressed his and since then it seems like he has not much desire to continue on. The patient also drinks heavily according to the laxity noted. In the emergency room the patient had normal temperature, he was saturating 85% on room air which improved to more than 90% with 2 L of oxygen, blood pressure was stable. He was in atrial fibrillation with a very labile heart rate. The heart rate varied from upper 30s-80 depending upon his activity level. The patient did not have any dizziness headache chest pain or palpitations. The chest x-ray showed left elevated hemidiaphragm which is chronic, had left- sided atelectasis, also had right lower lobe and middle lobe atelectasis. The labs showed WBC of 7.5, hemoglobin 12.7 hematocrit 36, platelets 239, MCV 106 [history of alcohol use], patient's left lites were stable. He had elevated bilirubin at 1.6. The patient had very high TSH at 58. He has not been taking his Synthroid. EKG showed atrial fibrillation with bradycardia, it also showed low voltage. In the limb leads. The patient had abrasions in both his upper extremities. He was very weak and unable to ambulate or take care of himself. He was therefore admitted to the hospital for further management. The patient has a DNR 02/02 Patient seen and examined, no acute overnight events. His labs are stable. Patient is off oxygen this morning. He has not been participating with his incentive spirometry. Educated the need to do same. He is only able to draw 250-500 cc of breaths. The patient is not very keen on staying in the hospital wants to go back home. Has not yet been seen by physical therapy. His heart rate is stable TSH is improved slightly since yesterday. The patient otherwise denies any acute complaints Pertinent ROS: Denies headache, dizziness Denies chest pain, palpitations Denies cough or shortness of breath Denies abdominal pain, nausea or vomiting. - Constitutional Vitals: Vital Signs Temp Pulse Resp BP Pulse Ox 96.9 F L 56 L 16 119/78 93 02/02/18 06:43 02/02/18 08:00 02/02/18 08:00 02/02/18 06:43 02/02/18 06:43 Period Temp Pulse Resp BP Sys/Fritz Pulse Ox Last 24 Hr 96.6 F-97.6 F 45-83 16-24 108-163/66-102 90-99 Intake and Output 02/01/18 02/02/18 02/02/18 21:59 05:59 13:59 Intake Total 500 / 500 240 / 240 500 / 500 Output Total 400 / 400 Balance 500 / 500 -160 / -160 500 / 500 Weight 236 lb Intake & Output: Intake & Output 02/01/18 02/02/18 02/02/18 21:59 05:59 13:59 Intake Total 500 / 500 240 / 240 500 / 500 Output Total 400 / 400 Balance 500 / 500 -160 / -160 500 / 500 Weight 236 lb Intake: IV 500 / 500 500 / 500 Vancomycin 1,500 mg In Sodium 500 / 500 500 / 500 Chloride 0.9% 500 ml @ 333.3 mls/hr IV Q12H [facility] Rx#: [id number] Oral 0 / 0 240 / 240 Output: Void Amount 400 / 400 Exam: Constitutional; Afebrile, cooperative, alert, not in distress. Eyes- No icterus, , No periorbital swelling Ears- Ext ear normal, Neck- Midline trachea, supple Respiratory system: Air Entry equal on both sides, No crackles or wheezing, no rhonchi. CVS- Rate rhythm irregular, S1,S2 heard, no gallop, no rub. 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 Medical - PN: Obj Da - Labs CBC & Chem 7: 02/02/18 03:40 02/02/18 03:40 Labs: Abnormal Lab Results 02/02/18 02/02/18 02/02/18 03:50 03:40 03:40 RBC 3.27 L Hgb 11.7 L Hct 35.3 L MCV 107.7 H MCH 35.8 H RDW 16.4 H Lymph # (Auto) 1.3 L Calcium 7.8 L Phosphorus 2.5 L Total Bilirubin 1.2 H Direct Bilirubin 0.4 H GGT 66 H Alkaline Phosphatase 128 H Lactate Dehydrogenase 298 H Total Protein 5.5 L Albumin 2.7 L Albumin/Globulin Ratio Triglycerides 155 H TSH 50.59 H Thyroxine (T4) Free T3 pg/mL Urine Urobilinogen 02/01/18 02/01/18 02/01/18 15:11 10:16 06:29 RBC Hgb Hct MCV MCH RDW Lymph # (Auto) Calcium Phosphorus Total Bilirubin Direct Bilirubin GGT Alkaline Phosphatase Lactate Dehydrogenase Total Protein Albumin Albumin/Globulin Ratio Triglycerides TSH 58.68 H Thyroxine (T4) < 0.5 L Free T3 pg/mL 0.4 L Urine Urobilinogen 4.0 A 02/01/18 02/01/18 06:29 06:29 RBC 3.46 L Hgb 12.7 L Hct 36.9 L MCV 106.7 H MCH 36.6 H RDW 15.7 H Lymph # (Auto) Calcium 8.1 L Phosphorus Total Bilirubin 1.6 H Direct Bilirubin GGT Alkaline Phosphatase 139 H Lactate Dehydrogenase Total Protein Albumin 2.9 L Albumin/Globulin Ratio 0.9 L Triglycerides TSH Thyroxine (T4) Free T3 pg/mL Urine Urobilinogen Meds: Medications Acetaminophen (Tylenol) 650 mg PO Q6HP PRN PRN Reason: PAIN/FEVER > 101 Albuterol/Ipratropium (Duoneb) 3 ml NEB Q6HRT [facility] Last Admin: 02/02/18 07:52 Dose: 3 ml Fluoxetine HCl (Prozac) 10 mg PO QDAY [facility] Last Admin: 02/02/18 08:17 Dose: 10 mg Folic Acid (Folic Acid) 1 mg PO DAILY [facility] Last Admin: 02/02/18 08:17 Dose: 1 mg Thiamine HCl 100 mg/ Sodium (Chloride) 51 mls @ 50 mls/hr IV DAILY [facility] Last Admin: 02/02/18 09:06 Dose: 50 mls/hr Vancomycin HCl 1,500 mg/ (Sodium Chloride) 500 mls @ 333.3 mls/hr IV Q24H [facility] Last Admin: 02/02/18 09:59 Dose: 333.3 mls/hr Iron Carb/Multivit/[place]/Folic Acid (Multivitamin W/Minerals) 1 tab PO DAILY [facility] Last Admin: 02/02/18 08:17 Dose: 1 tab Levothyroxine Sodium (Synthroid) 50 mcg IV QAMAC [facility] Last Admin: 02/02/18 06:52 Dose: 50 mcg Lisinopril (Zestril) 10 mg PO QDAY [facility] Last Admin: 02/02/18 08:17 Dose: 10 mg Lorazepam (Ativan) 0 mg IV Q4HP PRN; Protocol PRN Reason: Alcohol Withdrawal Naloxone HCl (Narcan) 0.1 mg IV Q2MIN PRN PRN Reason: Opiate Reversal Omeprazole (Prilosec) 20 mg PO ACB [facility] Last Admin: 02/02/18 06:53 Dose: 20 mg Ondansetron HCl (Zofran) 4 mg IV Q4HP PRN PRN Reason: Nausea And Vomiting Oxycodone/Acetaminophen (Percocet 5-325 Mg) 1 tab PO Q4HP PRN PRN Reason: PAIN LEVEL 3-6 Last Admin: 02/02/18 05:44 Dose: 1 tab Rivaroxaban (Xarelto) 20 mg PO DAILY@1730 [facility] Last Admin: 02/01/18 17:41 Dose: 20 mg Sodium Chloride (Saline Flush) 10 ml IV Q8 [facility] Last Admin: 02/02/18 05:32 Dose: 10 ml Sodium Chloride (Saline Flush) 10 ml IV Q8 [facility] Last Admin: 02/02/18 05:31 Dose: Not Given Vancomycin HCl (Vancomycin Per Pharmacy) 1 order IV UD [facility] - Impressions Echo results Normal LV size Mild LVH Normal LV function Mild to moderate RV dilatation Biatrial moderate enlargement Mild to moderate pulmonary hypertension Moderate to severe aortic sclerosis IVC collapses with inspiration indicating normal CVP - Imaging and cardiology CT scan - abdomen Additional comments: IMPRESSION: 1. Acute nondisplaced fractures of the lateral right seventh and eighth and ninth ribs. No other acute posttraumatic change. 2. Cholelithiasis. Gallbladder and bile ducts are otherwise normal 3. Marked chronic elevation of the left diaphragm - stable. There is patchy airspace disease in both lower lobes and lingula which could indicate aspiration pneumonia. Moderate right pleural effusion noted 4. 8.9 cm benign-appearing lesion in the posterior segment of the right hepatic lobe - almost certainly benign hemangioma or benign FNH. Suggest: six month limited liver ultrasound to ensure stability. 5. Moderate prostate enlargement with diffuse urinary bladder wall thickening suggesting chronic bladder outlet narrowing. There or multiple small bladder stones in the left base, all less than 8 mm, likely a result of urinary stasis. Medical - PN: A/P - Time Spent With Patient Total time spent is greater than 50% in coordination of care (as documented) at patient's floor/unit and/or counseling patient: - Narrative A/P Narrative: A/P Rib Fractures: Due to mechanical fall, history of heavy alcohol use. Chest x- ray shows atelectasis in the right lower lobe and middle lobe. Aggressive pulmonary toilet pain management for now. Patient not very compliant with same educated Hypoxia-patient was saturating 85% on room air, given 2 L of oxygen secondary to pulmonary atelectasis likely. Aggressive pulmonary toilet. Pneumonia: Pro-calcitonin level is elevated 0.6 indicating high probability of bacterial infection in the lungs. Continue antibiotics for now. Microbiology pending Hematuria/ [place] Urine-dark urine since the time of fall, UA reviewed. Patient also has elevated bilirubin at 1.6. Likely hyper concentrated urine. Liver cyst-benign cyst of the liver noted. Patient has normal alpha protein levels Alcohol Abuse-heavy alcohol user, multiple falls likely secondary to alcohol use , see operative call for now, IV thiamine multivitamin and folic acid. Banana bag ordered for now COPD-duo nebs every 6 hours, patient does not have any wheezing on exam today. Hypothyroidism-history of hypothyroidism noncompliant with medications low T3 and low T4. On IV levothyroxine for now. Transition to oral likely in the morning. Bradycardia-likely due to atrial fibrillation as well as hypothyroidism. Correct thyroid function. The heart rate does improve when the patient tries to move around. Patient has no history of presyncope or palpitations. If the patient's heart rate remains low despite correcting the thyroid function the patient may need a pacemaker. Atrial Fibrillation-not on any rate control medications, supposed to be on anticoagulation resume Bactermia-noted on 26 January, coag negative staph, resistant to penicillin, IV vancomycin for now. Repeat blood cultures. Results awaited. Depression-contributory factors are family issues, perhaps alcohol is playing a role. Resume home antidepressant medication. OT/PT/ST therapy,-aggressive therapy will be instituted DNR code status Regular diet on chr anticoagulation Medical - PN: Qual - Stroke Symptom Onset Unknown: No - VTE Deep Vein Thrombosis/Pulmonary Embolism Present on Admission: No
[2018-02-02] MEDS: RIVAROXABAN 20 MG TABLET PO SCH (18:24)
[2018-02-03] MEDS: IPRATROPIUM/ALBUTEROL 3 ML AMPUL.NEB NEB SCH ×4 (00:55→19:11)
[2018-02-03 05:17] LABS: Basophils # (Auto) 0 K/mcL (0.0-0.3); Basophils % (Auto) 0.3 % (0.0-2.0); Eosinophils # (Auto) 0.4 K/mcL (0.0-0.7); Eosinophils % (Auto) 4.5 % (0.0-7.0); Granulocytes % (Auto) 75.4 % (38.0-78.0); Lymphocytes # (Auto) 1.2 K/mcL (1.5-4.8); Lymphocytes % (Auto) 13.6 % (15.5-49.0); Mean Cell Volume 107.3 fL (80.0-100.0); Mean Corpuscular HGB Conc 33.7 g/dL (31.0-36.0); Mean Corpuscular Hemoglobin 36.1 pg (26.0-34.0); Monocytes # (Auto) 0.5 K/mcL (0.1-0.9); Monocytes % (Auto) 6.2 % (1.0-12.0); Platelet Count 241 K/mcL (140-440); RBC 3.14 M/mcL (4.50-5.90); Red Cell Distribution Width 16.5 % (11.5-14.5)
[2018-02-03 05:30] LABS: ALT/SGPT 10 U/l (0-40); Albumin 2.6 gm/dL (3.2-5.2); Albumin/Globulin Ratio 0.9 (1.0-2.3); Alkaline Phosphatase 120 U/L (39-117); Bilirubin,Direct 0.3 mg/dL (0.0-0.3); Blood Urea Nitrogen 10 mg/dl (8-23); Gamma Glutamyl Transpeptidase 61 U/L (8-61); Uric Acid 5.4 mg/dL (2.5-8.0)
[2018-02-03] MEDS: 0.9 % SODIUM CHLORIDE 10 ML SYRINGE IV SCH ×7 (07:18→22:43)
[2018-02-03] MEDS: LEVOTHYROXINE 100 MCG VIAL IV SCH (08:34)
[2018-02-03] MEDS: LISINOPRIL 10 MG TABLET PO SCH (08:35)
[2018-02-03] MEDS: FOLIC ACID 1 MG TABLET PO SCH (08:35)
[2018-02-03] MEDS: MULTIVIT,THER IRON,CA,FA & MIN 1 TABLET PO SCH (08:35)
[2018-02-03] MEDS: OMEPRAZOLE 20 MG CAPSULE PO SCH (08:36)
[2018-02-03] MEDS: FLUoxetine HCL 10 MG CAPSULE PO SCH (08:40)
[2018-02-03] MEDS: oxyCODONE/APAP 5/325MG TABLET PO PRN (08:40)
[2018-02-03] MEDS: VANCOMYCIN 1,500 MG in 0.9 % SODIUM CHLORIDE 500 ML IV SCH (10:05)
[2018-02-03] MEDS: THIAMINE 100 MG TABLET PO SCH (10:20)
--- NOTE | 2018-02-03 15:41 | Internal Med Progress Note ---
Medical - PN: Subj Patient information: Note initiated : 02/03/18 at 3:39 pm Service Date, if different from initiated Date: [] Patient: River Ta 82 y/o M admitted on 02/01/18 for Short of Breath/ Multiple Rib Fractures, Hypoxia. Chief Complaint: [] Interval history: Mr. Ta is a 82 year old M with history of chronic obstructive pulmonary disease, chronic atrial fibrillation hypothyroidism depression who presents to the hospital accompanied by his daughter for evaluation of weakness shortness of breath. According to the patient and his family he has not been doing well for the last several months. He had multiple falls over the last few months last was approximately 6 days ago. He was seen in the emergency room here and had a right-sided fractures fifth through eighth acute. He signed himself out AMA according to the ER physician note. He had a blood culture drawn which was positive for gram-positive cocci coag negative staph. Which was not treated. The patient this time around comes with weakness and shortness of breath that has been getting worse since then. The patient also has poor oral intake. The patient is a very poor historian and does not want to talk much. He admits that he has not taken his chronic medications for a while unable to give me a good timeframe. It seems that the patient does not have very much desire to live anymore because of severe depression he admits to being depressed his and since then it seems like he has not much desire to continue on. The patient also drinks heavily according to the laxity noted. In the emergency room the patient had normal temperature, he was saturating 85% on room air which improved to more than 90% with 2 L of oxygen, blood pressure was stable. He was in atrial fibrillation with a very labile heart rate. The heart rate varied from upper 30s-80 depending upon his activity level. The patient did not have any dizziness headache chest pain or palpitations. The chest x-ray showed left elevated hemidiaphragm which is chronic, had left- sided atelectasis, also had right lower lobe and middle lobe atelectasis. The labs showed WBC of 7.5, hemoglobin 12.7 hematocrit 36, platelets 239, MCV 106 [history of alcohol use], patient's left lites were stable. He had elevated bilirubin at 1.6. The patient had very high TSH at 58. He has not been taking his Synthroid. EKG showed atrial fibrillation with bradycardia, it also showed low voltage. In the limb leads. The patient had abrasions in both his upper extremities. He was very weak and unable to ambulate or take care of himself. He was therefore admitted to the hospital for further management. The patient has a DNR 02/02 Patient seen and examined, no acute overnight events. His labs are stable. Patient is off oxygen this morning. He has not been participating with his incentive spirometry. Educated the need to do same. He is only able to draw 250-500 cc of breaths. The patient is not very keen on staying in the hospital wants to go back home. Has not yet been seen by physical therapy. His heart rate is stable TSH is improved slightly since yesterday. The patient otherwise denies any acute complaints 02/03 Pt seen examined, no acute overnight issues, toleraing po well. off oxygen, HR still quite variable, patient tsh at 49 slowly trending down, he does not move much or do much activity it seems has declined physical therapy patient wants to go back home, family trying to get more help at home, but want him to go to SNF for rehab if possible. He denies any pain at the site of rib fractures no need ofr oxygen any more. labs otherwise stable. Pertinent ROS: Denies headache, dizziness Denies chest pain, palpitations Denies cough or shortness of breath Denies abdominal pain, nausea or vomiting. - Constitutional Vitals: Vital Signs Temp Pulse Resp BP Pulse Ox 96.8 F L 60 18 91/64 91 02/03/18 12:00 02/03/18 14:28 02/03/18 14:28 02/03/18 12:00 02/03/18 12:00 Period Temp Pulse Resp BP Sys/Fritz Pulse Ox Last 24 Hr 96.5 F-97.6 F 52-60 18-20 91-146/62-90 90-95 Intake and Output 02/03/18 02/03/18 02/03/18 05:59 13:59 21:59 Intake Total 200 / 200 Output Total 300 / 300 Balance -300 / -300 200 / 200 Intake & Output: Intake & Output 02/03/18 02/03/18 02/03/18 05:59 13:59 21:59 Intake Total 200 / 200 Output Total 300 / 300 Balance -300 / -300 200 / 200 Intake: Oral 200 / 200 Output: Void Amount 300 / 300 Other: Meal Breakfast Percent of Meal Consumed 50% # Voids 1 Exam: Constitutional; Afebrile, cooperative, alert, not in distress. Eyes- No icterus, , No periorbital swelling Ears- Ext ear normal, hearing normal to conversation. Neck- Midline trachea, supple Respiratory system: Air Entry equal on both sides, No crackles or wheezing, no rhonchi. ant exam only CVS- Rate rhythm irregular, S1,S2 heard, no gallop, no rub. 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 Medical - PN: Obj Da - Labs CBC & Chem 7: 02/03/18 03:35 02/03/18 03:35 Labs: Abnormal Lab Results 02/03/18 02/03/18 02/03/18 03:35 03:35 03:35 RBC 3.14 L Hgb 11.3 L Hct 33.6 L MCV 107.3 H MCH 36.1 H RDW 16.5 H Lymph % (Auto) 13.6 L Lymph # (Auto) 1.2 L Calcium 7.9 L Phosphorus Total Bilirubin Direct Bilirubin GGT Alkaline Phosphatase 120 H Lactate Dehydrogenase 260 H Total Protein 5.4 L Albumin 2.6 L Albumin/Globulin Ratio 0.9 L Triglycerides TSH 49.62 H Thyroxine (T4) Free T3 pg/mL Urine Urobilinogen 02/02/18 02/02/18 02/02/18 03:50 03:40 03:40 RBC 3.27 L Hgb 11.7 L Hct 35.3 L MCV 107.7 H MCH 35.8 H RDW 16.4 H Lymph % (Auto) Lymph # (Auto) 1.3 L Calcium 7.8 L Phosphorus 2.5 L Total Bilirubin 1.2 H Direct Bilirubin 0.4 H GGT 66 H Alkaline Phosphatase 128 H Lactate Dehydrogenase 298 H Total Protein 5.5 L Albumin 2.7 L Albumin/Globulin Ratio Triglycerides 155 H TSH 50.59 H Thyroxine (T4) Free T3 pg/mL Urine Urobilinogen 02/01/18 02/01/18 02/01/18 15:11 10:16 06:29 RBC Hgb Hct MCV MCH RDW Lymph % (Auto) Lymph # (Auto) Calcium Phosphorus Total Bilirubin Direct Bilirubin GGT Alkaline Phosphatase Lactate Dehydrogenase Total Protein Albumin Albumin/Globulin Ratio Triglycerides TSH 58.68 H Thyroxine (T4) < 0.5 L Free T3 pg/mL 0.4 L Urine Urobilinogen 4.0 A 02/01/18 02/01/18 06:29 06:29 RBC 3.46 L Hgb 12.7 L Hct 36.9 L MCV 106.7 H MCH 36.6 H RDW 15.7 H Lymph % (Auto) Lymph # (Auto) Calcium 8.1 L Phosphorus Total Bilirubin 1.6 H Direct Bilirubin GGT Alkaline Phosphatase 139 H Lactate Dehydrogenase Total Protein Albumin 2.9 L Albumin/Globulin Ratio 0.9 L Triglycerides TSH Thyroxine (T4) Free T3 pg/mL Urine Urobilinogen Meds: Medications Acetaminophen (Tylenol) 650 mg PO Q6HP PRN PRN Reason: PAIN/FEVER > 101 Albuterol/Ipratropium (Duoneb) 3 ml NEB Q6HRT [facility] Last Admin: 02/03/18 14:22 Dose: 3 ml Fluoxetine HCl (Prozac) 10 mg PO QDAY [facility] Last Admin: 02/03/18 08:40 Dose: 10 mg Folic Acid (Folic Acid) 1 mg PO DAILY [facility] Last Admin: 02/03/18 08:35 Dose: 1 mg Vancomycin HCl 1,500 mg/ (Sodium Chloride) 500 mls @ 333.3 mls/hr IV Q24H [facility] Last Admin: 02/03/18 10:05 Dose: 333 mls/hr Iron Carb/Multivit/[place]/Folic Acid (Multivitamin W/Minerals) 1 tab PO DAILY [facility] Last Admin: 02/03/18 08:35 Dose: 1 tab Levothyroxine Sodium (Synthroid) 50 mcg IV QAMAC [facility] Last Admin: 02/03/18 08:34 Dose: 50 mcg Lisinopril (Zestril) 10 mg PO QDAY [facility] Last Admin: 02/03/18 08:35 Dose: 10 mg Lorazepam (Ativan) 0 mg IV Q4HP PRN; Protocol PRN Reason: Alcohol Withdrawal Naloxone HCl (Narcan) 0.1 mg IV Q2MIN PRN PRN Reason: Opiate Reversal Omeprazole (Prilosec) 20 mg PO ACB [facility] Last Admin: 02/03/18 08:36 Dose: 20 mg Ondansetron HCl (Zofran) 4 mg IV Q4HP PRN PRN Reason: Nausea And Vomiting Oxycodone/Acetaminophen (Percocet 5-325 Mg) 1 tab PO Q4HP PRN PRN Reason: PAIN LEVEL 3-6 Last Admin: 02/03/18 08:40 Dose: 1 tab Rivaroxaban (Xarelto) 20 mg PO DAILY@1730 [facility] Last Admin: 02/02/18 18:24 Dose: 20 mg Sodium Chloride (Saline Flush) 10 ml IV Q8 [facility] Last Admin: 02/03/18 08:36 Dose: 10 ml Sodium Chloride (Saline Flush) 10 ml IV Q8 [facility] Last Admin: 02/03/18 07:18 Dose: Not Given Thiamine HCl (Vitamin B1) 100 mg PO DAILY [facility] Last Admin: 02/03/18 10:20 Dose: 100 mg Vancomycin HCl (Vancomycin Per Pharmacy) 1 order IV UD [facility] Medical - PN: A/P - Time Spent With Patient Total time spent is greater than 50% in coordination of care (as documented) at patient's floor/unit and/or counseling patient: - Narrative A/P Narrative: A/P Rib Fractures: Due to mechanical fall, history of heavy alcohol use. Chest x- ray shows atelectasis in the right lower lobe and middle lobe. Aggressive pulmonary toilet pain management for now. Patient not very compliant with same. Hypoxia-patient was saturating 85% on room air, given 2 L of oxygen secondary to pulmonary atelectasis likely. Aggressive pulmonary toilet. This is now resolved. Pneumonia: Pro-calcitonin level is elevated 0.6 indicating high probability of bacterial infection in the lungs. Continue antibiotics for now. Microbiology pending, CT abdomen and pelvis did show possible aspiration pneumonia in the lingula region. Hematuria/ [place] Urine-dark urine since the time of fall, UA reviewed no hematuria. Patient also has elevated bilirubin at 1.6. Likely hyper concentrated urine. Liver cyst-benign cyst of the liver noted. Patient has normal alpha protein levels Alcohol Abuse-heavy alcohol user, multiple falls likely secondary to alcohol use , see operative call for now, thiamine multivitamin and folic acid. not in withdrawal COPD-duo nebs every 6 hours, patient does not have any wheezing on exam today. Hypothyroidism-history of hypothyroidism noncompliant with medications low T3 and low T4. On IV levothyroxine for now. transition to oral from AM at home dose. Bradycardia-likely due to atrial fibrillation as well as hypothyroidism. Correct thyroid function. The heart rate does improve when the patient tries to move around. Patient has no history of presyncope or palpitations. If the patient's heart rate remains low despite correcting the thyroid function the patient may need a pacemaker. Atrial Fibrillation-not on any rate control medications, supposed to be on anticoagulation resume Bactermia-noted on 26 January, coag negative staph, resistant to penicillin, IV vancomycin for now. Repeat blood cultures are negative so far if become final with no cultures this is likely an contaminant and vanco could be stopped. Depression-contributory factors are family issues, perhaps alcohol is playing a role. Resume home antidepressant medication. OT/PT/ST therapy,-aggressive therapy will be instituted, pt has been declining same DNR code status Regular diet on chr anticoagulation Pt plan for d/c to SNF for rehab, needs more help at home Medical - PN: Qual - Stroke Symptom Onset Unknown: No - VTE Deep Vein Thrombosis/Pulmonary Embolism Present on Admission: No
[2018-02-03] MEDS: RIVAROXABAN 20 MG TABLET PO SCH (19:37)
[2018-02-04] MEDS: IPRATROPIUM/ALBUTEROL 3 ML AMPUL.NEB NEB SCH ×2 (01:14→07:53)
[2018-02-04 05:50] LABS: Basophils # (Auto) 0 K/mcL (0.0-0.3); Basophils % (Auto) 0.4 % (0.0-2.0); Eosinophils # (Auto) 0.4 K/mcL (0.0-0.7); Granulocytes % (Auto) 74.1 % (38.0-78.0); Lymphocytes # (Auto) 1.1 K/mcL (1.5-4.8); Lymphocytes % (Auto) 14.4 % (15.5-49.0); Mean Cell Volume 107.7 fL (80.0-100.0); Mean Corpuscular HGB Conc 33.4 g/dL (31.0-36.0); Monocytes # (Auto) 0.5 K/mcL (0.1-0.9); Monocytes % (Auto) 6.1 % (1.0-12.0); Platelet Count 221 K/mcL (140-440); RBC 3.23 M/mcL (4.50-5.90); Red Cell Distribution Width 16.3 % (11.5-14.5)
[2018-02-04] MEDS: 0.9 % SODIUM CHLORIDE 10 ML SYRINGE IV SCH ×2 (05:56→05:57)
[2018-02-04 06:52] LABS: ALT/SGPT 10 U/l (0-40); Albumin 2.6 gm/dL (3.2-5.2); Albumin/Globulin Ratio 0.9 (1.0-2.3); Alkaline Phosphatase 122 U/L (39-117); Bilirubin,Direct 0.3 mg/dL (0.0-0.3); Blood Urea Nitrogen 9 mg/dl (8-23); Gamma Glutamyl Transpeptidase 59 U/L (8-61); Uric Acid 5.4 mg/dL (2.5-8.0)
[2018-02-04] MEDS: OMEPRAZOLE 20 MG CAPSULE PO SCH (08:06)
[2018-02-04] MEDS ORDERED: LEVOTHYROXINE 100 MCG TABLET PO ONE (09:37)
[2018-02-04] MEDS: LEVOTHYROXINE 100 MCG VIAL IV SCH (09:49)
[2018-02-04] MEDS: VANCOMYCIN 1,500 MG in 0.9 % SODIUM CHLORIDE 500 ML IV SCH (09:50)
[2018-02-04] MEDS: THIAMINE 100 MG TABLET PO SCH (10:04)
[2018-02-04] MEDS: FLUoxetine HCL 10 MG CAPSULE PO SCH (10:04)
[2018-02-04] MEDS: MULTIVIT,THER IRON,CA,FA & MIN 1 TABLET PO SCH (10:04)
[2018-02-04] MEDS: LISINOPRIL 10 MG TABLET PO SCH (10:05)
[2018-02-04] MEDS: FOLIC ACID 1 MG TABLET PO SCH (10:05)
--- NOTE | 2018-02-04 10:21 | Discharge Summary ---
Medical - DS: Prov Patient information: Note initiated : 02/04/18 at 10:17 am Service Date, if different from initiated Date: [] Patient: River Ta 82 y/o M admitted on 02/01/18 for Short of Breath/ Multiple Rib Fractures, Hypoxia. Date of admission: 02/01/18 14:25 Discharge date: 02/04/18 Primary care physician: Geoffrey Arambula Admitting clinician: Seth Rodriguez Consults: 02/01/18 11:09 Consult to Physician [CONS] Stat Comment: Consulting Provider: Iron Jenkins Reason For Exam: Physician to Consult 02/01/18 12:48 Consult to Physician [CONS] Stat Comment: Consulting Provider: Seth Rodriguez Reason For Exam: Physician to Consult 02/01/18 14:35 Consult to Physician [CONS] Stat Comment: Consulting Provider: Baron Tavarez Reason For Exam: Physician to Consult Discharging clinician: Saloni Wisdom Medical - DS: Meds - Discharge Medications Prescriptions: oxyCODONE/APAP [Percocet 5-325 mg] 1 tab PO Q4HP PRN #15 tab PRN Reason: Pain Level 3-6 Active and Home Medications: Home Medications No Known Home Meds [No Known Home Meds] 02/01/18 [History Confirmed 02/01/18 Last Taken Unknown] Medical - DS: Hosp Hospital course: Mr. Ta is a 82 year old M with history of chronic obstructive pulmonary disease, chronic atrial fibrillation hypothyroidism depression who presents to the hospital accompanied by his daughter for evaluation of weakness shortness of breath. According to the patient and his family he has not been doing well for the last several months. He had multiple falls over the last few months last was approximately 6 days ago. He was seen in the emergency room here and had a right-sided fractures fifth through eighth acute. He signed himself out AMA according to the ER physician note. He had a blood culture drawn which was positive for gram-positive cocci coag negative staph. Which was not treated. The patient this time around comes with weakness and shortness of breath that has been getting worse since then. The patient also has poor oral intake. The patient is a very poor historian and does not want to talk much. He admits that he has not taken his chronic medications for a while unable to give me a good timeframe. It seems that the patient does not have very much desire to live anymore because of severe depression he admits to being depressed his and since then it seems like he has not much desire to continue on. The patient also drinks heavily according to the laxity noted. In the emergency room the patient had normal temperature, he was saturating 85% on room air which improved to more than 90% with 2 L of oxygen, blood pressure was stable. He was in atrial fibrillation with a very labile heart rate. The heart rate varied from upper 30s-80 depending upon his activity level. The patient did not have any dizziness headache chest pain or palpitations. The chest x-ray showed left elevated hemidiaphragm which is chronic, had left- sided atelectasis, also had right lower lobe and middle lobe atelectasis. The labs showed WBC of 7.5, hemoglobin 12.7 hematocrit 36, platelets 239, MCV 106 [history of alcohol use], patient's left lites were stable. He had elevated bilirubin at 1.6. The patient had very high TSH at 58. He has not been taking his Synthroid. EKG showed atrial fibrillation with bradycardia, it also showed low voltage. In the limb leads. The patient had abrasions in both his upper extremities. He was very weak and unable to ambulate or take care of himself. He was therefore admitted to the hospital for further management. The patient has a DNR 02/02 Patient seen and examined, no acute overnight events. His labs are stable. Patient is off oxygen this morning. He has not been participating with his incentive spirometry. Educated the need to do same. He is only able to draw 250-500 cc of breaths. The patient is not very keen on staying in the hospital wants to go back home. Has not yet been seen by physical therapy. His heart rate is stable TSH is improved slightly since yesterday. The patient otherwise denies any acute complaints 02/03 Pt seen examined, no acute overnight issues, toleraing po well. off oxygen, HR still quite variable, patient tsh at 49 slowly trending down, he does not move much or do much activity it seems has declined physical therapy patient wants to go back home, family trying to get more help at home, but want him to go to SNF for rehab if possible. He denies any pain at the site of rib fractures no need ofr oxygen any more. labs otherwise stable. 02/04 The patient seen on rounds, is in better spirits today. Been up to the chair for breakfast this morning. Works with physical therapy. No particular complaints when I see him, notes that he is feeling better, plans to go to [facility] today for further rehabilitation. In Summary: Rib Fractures: Due to mechanical fall, history of heavy alcohol use. Chest x- ray shows atelectasis in the right lower lobe and middle lobe. Aggressive pulmonary toilet and pain management. Acute hypoxic respiratory failure-resolved; patient was saturating 85% on room air at presentation, given 2 L of oxygen secondary to pulmonary atelectasis likely. Resolved. Pneumonia: Possible aspiration pneumonia in the lingula region. Improved on only vancomycin, no further treatement Alcohol Abuse-heavy alcohol user, multiple falls likely secondary to alcohol use ; no active withdrawal. Multivitamin and folic acid. COPD-Duoneb every 6 hours initially; no wheezing at discharge, will send on scheduled TID. Depression-contributory factors are family issues, perhaps alcohol is playing a role. Resumed home antidepressant medication. Hypothyroidism-history of hypothyroidism, noncompliant with medications, TSH 58 low T3 and low T4. On IV levothyroxine at first, changed to PO at discharge ( former home dose o 100 mcg/d). Bradycardia-likely due to atrial fibrillation as well as hypothyroidism. Heart rate improved with levothyroxine therapy. Atrial Fibrillation-not on any rate control medications, not taking anticoagulation at home. Rivaroxaban resumed. Liver cyst-benign cyst of the liver noted. Patient has normal alpha protein levels Positive blood cultures from ED visit on 26 January with coag negative staph; when re-presented to ED, treated wt IV vancomycin for now. Repeat blood cultures (off of antibiotic treatment) are negative, suspect contaminant. Antibiotics stopped at discharge. Depression-contributory factors are family issues, perhaps alcohol is playing a role. Resumed home antidepressant medication. Discharge diagnosis: Acute hypoxic respiratory failure Secondary discharge diagnosis: Rib Fractures, due to mechanical fall Pneumonia Alcohol Abuse COPD Depression Hypothyroidism Bradycardia Atrial Fibrillation Liver cyst Positive blood cultures, likely contaminant Depression Pertinent studies/significant findings: Echocardiogram The left ventricle is normal in size with mild concentric left ventricular hypertrophy and normal systolic function. Mild to moderate RV enlargement Left and right atria are moderately dilated Mild to moderate posterior mitral annular calcification Doppler findings suggesting pulmonary hypertension (4050 mmHg) Normal IVC diameter and inspiratory collapse Moderate to severe aortic sclerosis CT of abdomen and pelvis IMPRESSION: 1. Acute nondisplaced fractures of the lateral right seventh and eighth and ninth ribs. No other acute posttraumatic change. 2. Cholelithiasis. Gallbladder and bile ducts are otherwise normal 3. Marked chronic elevation of the left diaphragm - stable. There is patchy airspace disease in both lower lobes and lingula which could indicate aspiration pneumonia. Moderate right pleural effusion noted 4. 8.9 cm benign-appearing lesion in the posterior segment of the right hepatic lobe - almost certainly benign hemangioma or benign FNH. Suggest: six month limited liver ultrasound to ensure stability. 5. Moderate prostate enlargement with diffuse urinary bladder wall thickening suggesting chronic bladder outlet narrowing. There or multiple small bladder stones in the left base, all less than 8 mm, likely a result of urinary stasis. - Time Spent with Patient Total time spent providing and/or coordinating discharge services: Greater than 30 minutes Medical - DS: Exam - Constitutional Vitals: Vital Signs Temp Pulse Pulse Pulse Resp BP Pulse Ox 02/04/18 07:35 98 F 50 L 18 160/96 92 02/04/18 04:00 97.0 F 54 L 15 126/79 94 02/04/18 01:20 52 L 15 02/04/18 00:00 97.2 F 52 L 54 L 16 110/70 95 02/03/18 20:00 96.9 F L 49 L 20 108/66 90 02/03/18 19:12 62 12 95 02/03/18 16:00 97.0 F 53 L 18 108/59 91 02/03/18 14:28 60 18 02/03/18 14:00 91 02/03/18 12:00 96.8 F L 55 L 18 91/64 91 Intake and Output 02/03/18 02/04/18 02/04/18 21:59 05:59 13:59 Intake Total 170 / 170 250 / 250 Balance 170 / 170 250 / 250 Intake: Oral 170 / 170 250 / 250 Other: Meal Dinner Percent of Meal Consumed 25% Feeding Ability Needs Supervision Stool Size Small Stool Color Brown Stool Consistency Normal for Patient # Voids 1 3 # Bowel Movements 1 Weight 228 lb General: In no acute distress Chest: Clear, diminished right base, no wheezes Cardiovascular: Irregularly irregular Abdomen: Soft, nontender Neuro: Alert, oriented, mood is pretty good, generally weak. Medical - DS: Data Labs on day of discharge: Labs from last 24 hours 02/04/18 02/04/18 02/04/18 08:00 03:50 03:50 WBC 7.8 RBC 3.23 L Hgb 11.6 L Hct 34.8 L MCV 107.7 H MCH 36.0 H MCHC 33.4 RDW 16.3 H Plt Count 221 MPV 8.5 Gran % 74.1 Lymph % (Auto) 14.4 L [place] % (Auto) 6.1 Eos % (Auto) 5.0 Baso % (Auto) 0.4 Gran # 5.8 Lymph # (Auto) 1.1 L [place] # (Auto) 0.5 Eos # (Auto) 0.4 Baso # (Auto) 0 Sodium 138 Potassium 4.2 Chloride 102 Carbon Dioxide 25 Anion Gap 11.0 BUN 9 Creatinine 0.7 GFR Calculation 87 Glucose 84 Uric Acid 5.4 Calcium 8.2 L Phosphorus 2.7 Magnesium 2.0 Total Bilirubin 1.3 H Direct Bilirubin 0.3 GGT 59 AST 23 ALT 10 Alkaline Phosphatase 122 H Lactate Dehydrogenase 317 H Total Protein 5.6 L Albumin 2.6 L Globulin 3.0 Albumin/Globulin Ratio 0.9 L Triglycerides 129 Vancomycin Trough 11.6 Preliminary micro results at discharge 02/01/18 17:53 Blood Culture - Preliminary Blood 02/01/18 15:11 Blood Culture - Preliminary Blood Medical - DS: A/P - Patient/Caregiver Discharge Instructions Activity: as per physical therapy, increase activity as tolerated Diet: Dysphagia Advanced (Level 3) Prescriptions: oxyCODONE/APAP [Percocet 5-325 mg] 1 tab PO Q4HP PRN #15 tab PRN Reason: Pain Level 3-6 - Follow up Plan Follow up with: Geoffrey Arambula PA-C [Primary Care Provider] - Disposition: Xfer SNF Prognosis: Fair Rehab Potential: Fair I certify that the patient requires SNF services: Yes Overall status at discharge: patient is not back to baseline Medical - DS: Qual - VTE Deep Vein Thrombosis/Pulmonary Embolism Present on Admission: No
[2018-02-05] MEDS ORDERED: LEVOTHYROXINE 100 MCG TABLET PO SCH (07:30)
== END 2018-02-04 12:40 | DRG 189 ==
LOC: ED 06:06 → ICU 14:25
PROVIDERS: ADMIT Internal Medicine; ATTEND Internal Medicine